=== PATIENT | female | born 1975 | race Caucasian/White ===

== ENCOUNTER → 2016-12-27 | Day surgery (SDC) | payer OTHER | END | disposition home or self-care (01) | LOC: JRADIR 09:07 | PROVIDERS: ATTEND Obstetrics & Gynecology | PROC: BU12YZZ Fluoroscopy of Bilateral Fallopian Tubes using Other Contrast (ICD-10-PCS; principal; 2016-12-27) | DX: N97.9 Female infertility, unspecified (principal) | CPT/HCPCS: 36415; 58340; 74740-TC; 76000-TC; 84702; Q9967 ==

== ENCOUNTER 2018-01-27 10:42 | Emergency (ER) | payer OTHER ==
[2018-01-27 10:58] VITALS: BP 124/77; PULSE 67; TEMP 98.1; BMI 25.7
[2018-01-27] MEDS ORDERED: DIPHTH,PERTUSS(ACELL),TET 0.5 ML DISP.SYRIN IM ONE (11:40)
--- NOTE | 2018-01-27 11:45 | PDOC ---
History of Present Illness - General Chief Complaint: Injury Stated Complaint: HAND INJURY - History of Present Illness Initial Comments: 42-year-old female without any comorbidities presents for evaluation of left fourth and fifth finger pain. She states she was moving a couch and the couch fell on her hand the edge of the leg of the couch lacerated her 5th finger. She has localized pain to the area without any other symptoms. 01/27/18 11:39 01/27/18 11:45 Past History - Past Medical History Allergies/Adverse Reactions: Allergies Allergy/AdvReac Type Severity Reaction Status Date / Time No Known Allergies Allergy Verified 01/27/18 10:54 Home Medications: Ambulatory Orders NK [No Known Home Medication] 01/27/18 Asthma: Yes COPD: No Other medical history: DENIES. - Suicide/Smoking/Psychosocial Hx Smoking History: Never smoked Review of Systems - Review of Systems Musculoskeletal: Yes: See HPI All Other Systems: Reviewed and Negative *Physical Exam - Vital Signs Last Vital Signs Temp Pulse Resp BP Pulse Ox 98.1 F 67 19 124/77 98 01/27/18 10:54 01/27/18 10:54 01/27/18 10:54 01/27/18 10:54 01/27/18 10:54 - Physical Exam Comments: There is mild swelling about the fifth finger of the left hand. There is a small subcentimeter wound longitudinal nature extending from the skin overlying the distal phalanx to the DIPJ on the volar aspect of the left fifth finger overlying the DIPJ, there is a small amount of subcutaneous fat exposed. I am unable to assess FDP and FDS. There is no swelling in the fourth finger FDS and FDP work independently there is tenderness over the DIPJ and PIPJ there are no gross sensory deficits. 01/27/18 11:40 01/27/18 11:48 ED Treatment Course - RADIOLOGY Radiology Studies Ordered: Category Date Time Status HAND- LEFT [RAD] Stat Radiology 01/27/18 11:39 Ordered Medical Decision Making - Medical Decision Making Is a samy fracture at the left fifth distal phalanx. The laceration on the volar aspect of the finger does not communicate with the fracture. I'll do a primary closure and washout of the laceration. Tetanus was updated. 01/27/18 12:11 01/27/18 12:37 A digital block was done aseptically on the left fifth finger. The wound was explored to its base in a bloodless field there is no foreign body identified. 3 simple interrupted 4-0 nylon sutures were placed this was tolerated well a dry sterile dressing was placed. The fingers were sebastián taped. *DC/Admit/Observation/Transfer Diagnosis at time of Disposition: Closed fracture of tuft of distal phalanx of finger, Crush fracture, Crush injury to finger, Sprain, finger - Discharge Dispostion Disposition: HOME Condition at time of disposition: Stable Decision to Admit order: No - Referrals Referrals: Claudia Mcgarry NP [Primary Care Provider] - Steven Tariq MD [Staff Physician] - - Patient Instructions Printed Discharge Instructions: DI for Crush Injury, Finger Sprain, DI for Laceration Repair, Laceration Repair, DI for Laceration Repair -- Finger Additional Instructions: Por favor regrese a la pravin de emergencias si ruvalcaba herida cabrera aumentado el dolor o el drenaje. No estoy seguro de si el tendn y el dedo meique se morse roto. Debe realizar un seguimiento con ciruga de la mano para obtener ms opciones de evaluacin y tratamiento. Las suturas que se colocaron hoy deben retirarse en 10 fox. l no requiere antibiticos para esto. Mantenga los dedos enganchados para ruvalcaba comodidad. Hay jose armando fractura en la punta del miguel dedo. La fractura no requiere ningn tratamiento. l puede quitarse el vendaje que se aplic hoy en 48 horas y lavarse el dedo con agua y jabn. l puede dejarlo abierto al aire. No coloque ninguna cinta sobre la herida. No aplique apsitos o bacitracin en la herida. Seguimiento con ciruga de mano en 1-2 fox para mayor evaluacin y opciones de tratamiento. Print Language: BURMESE - Post Discharge Activity
== END 2018-01-27 12:47 | disposition home or self-care (01) ==
LOC: JERFT 10:42
PROC: 0JQK0ZZ Repair Left Hand Subcutaneous Tissue and Fascia, Open Approach (ICD-10-PCS; principal; 2018-01-27)
PROC: 3E0234Z Introduction of Serum, Toxoid and Vaccine into Muscle, Percutaneous Approach (ICD-10-PCS; 2018-01-27)
DX: S67.197A Crushing injury of left little finger, initial encounter (principal); S62.667A Nondisplaced fracture of distal phalanx of left little finger, initial encounter for closed fracture; W23.0XXA Caught, crushed, jammed, or pinched between moving objects, initial encounter; Y93.89 Activity, other specified; Y92.038 Other place in apartment as the place of occurrence of the external cause; Y99.8 Other external cause status; S61.217A Laceration without foreign body of left little finger without damage to nail, initial encounter
CPT/HCPCS: 12011; 73130-TC-LR-FY; 90471; 90715; 99281-25

== ENCOUNTER 2018-02-05 11:07 | Emergency (ER) | payer OTHER ==
[2018-02-05 11:12] VITALS: BP 127/79; PULSE 73; TEMP 98.6; BMI 27.1
--- NOTE | 2018-02-05 11:32 | PDOC ---
History of Present Illness - General Chief Complaint: Suture/Staple Removal(Here) Stated Complaint: SUTURE REMOVAL Time Seen by Provider: 02/05/18 11:21 - History of Present Illness Initial Comments: 32-year-old female presents for suture removal left fifth finger sutures were placed 10 days ago she has occasions 02/05/18 11:30 Past History - Past Medical History Allergies/Adverse Reactions: Allergies Allergy/AdvReac Type Severity Reaction Status Date / Time No Known Allergies Allergy Verified 02/05/18 11:09 Home Medications: Ambulatory Orders NK [No Known Home Medication] 01/27/18 Asthma: Yes COPD: No DVT: No - Suicide/Smoking/Psychosocial Hx Smoking History: Never smoked Information on smoking cessation initiated: No Hx Alcohol Use: No Drug/Substance Use Hx: No Review of Systems - Review of Systems All Other Systems: Reviewed and Negative *Physical Exam - Vital Signs Last Vital Signs Temp Pulse Resp BP Pulse Ox 98.6 F 73 18 127/79 100 02/05/18 11:09 02/05/18 11:09 02/05/18 11:09 02/05/18 11:09 02/05/18 11:09 - Physical Exam Comments: Left fifth finger skin color and temperature are normal the wound edges are well approximated with eschar sensory intact. 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 02/05/18 11:30 Medical Decision Making - Medical Decision Making She still needs to follow-up with hand surgery for wound management and fracture management. 02/05/18 11:31 *DC/Admit/Observation/Transfer Diagnosis at time of Disposition: Visit for suture removal - Discharge Dispostion Disposition: HOME Condition at time of disposition: Stable Decision to Admit order: No - Referrals Referrals: Steven Tariq MD [Staff Physician] - - Patient Instructions Printed Discharge Instructions: DI for Suture Removal Additional Instructions: Please follow-up with hand surgery for further evaluation and treatment options. You need fracture management. Return to the emergency room should you experience any drainage swelling or increasing pain. He may take Tylenol Motrin for pain. - Post Discharge Activity
== END 2018-02-05 11:37 | disposition home or self-care (01) ==
LOC: JERFT 11:07
DX: Z48.817 Encounter for surgical aftercare following surgery on the skin and subcutaneous tissue (principal); Z48.02 Encounter for removal of sutures
CPT/HCPCS: 99281-25

== ENCOUNTER 2018-05-24 11:50 | Emergency (ER) | payer OTHER ==
[2018-05-24 11:58] VITALS: BP 124/71; PULSE 96; TEMP 98.6; BMI 26.6
--- NOTE | 2018-05-24 12:13 | PDOC ---
History of Present Illness - General Chief Complaint: Cold Symptoms Stated Complaint: COLD SYMPTOMS Time Seen by Provider: 05/24/18 12:01 History Source: Patient Exam Limitations: No Limitations - History of Present Illness Initial Comments: 05/24/18 12:54 Patient is a 42-year-old female with no past medical history who presents to emergency department today for 2 weeks of cough. Patient states that her cough is productive and she brings up yellow/greenish mucus. She states that she is unable to sleep due to the coughing. Patient state her throat also hurts from the coughing. She admits to chest and back pain while coughing. Denies fevers, chills, earache, shortness of breath, nausea, vomiting and diarrhea. Past History - Travel Traveled outside of the country in the last 30 days: No Close contact w/someone who was outside of country & ill: No - Past Medical History Allergies/Adverse Reactions: Allergies Allergy/AdvReac Type Severity Reaction Status Date / Time No Known Allergies Allergy Verified 05/24/18 11:56 Home Medications: Ambulatory Orders Acetaminophen [Tylenol] 650 mg PO QID PRN 05/24/18 Albuterol 0.083% Nebulizer Micheline [Ventolin 0.083% Nebulizer Soln -] 1 neb NEB Q4H #20 vial 05/24/18 Budesonide/Formeterol Fumarate [SYMBICORT 80/4.5mcg -] 1 inh PO DAILY #1 cannister 05/24/18 Guaifenesin AC [Robitussin AC] 10 ml PO Q6H #200 ml MDD 4 05/24/18 Ibuprofen 400 mg PO QID PRN 05/24/18 predniSONE [Deltasone -] 40 mg PO DAILY #8 tablet 05/24/18 Asthma: Yes COPD: No DVT: No - Suicide/Smoking/Psychosocial Hx Smoking History: Never smoked Hx Alcohol Use: No Drug/Substance Use Hx: No Review of Systems - Review of Systems Able to Perform ROS?: Yes Comments:: 05/24/18 12:11 CONSTITUTIONAL: Absent: fever, chills, diaphoresis, generalized weakness, malaise, loss of appetite HEENT: Absent: rhinorrhea, nasal congestion, throat pain, throat swelling, difficulty swallowing, mouth swelling, ear pain, eye pain, visual Changes CARDIOVASCULAR: Absent: chest pain, loss of consciousness, palpitations, irregular heart rate, peripheral edema RESPIRATORY: Present: cough Absent: cough, shortness of breath, dyspnea with exertion, orthopnea, wheezing, stridor, hemoptysis GASTROINTESTINAL: Absent: abdominal pain, abdominal distension, nausea, vomiting, diarrhea, constipation, melena, hematochezia GENITOURINARY: Absent: dysuria, frequency, urgency, hesitancy, hematuria, flank pain, genital pain MUSCULOSKELETAL: Absent: myalgia, arthralgia, joint swelling SKIN: Absent: rash, itching, pallor HEMATOLOGIC/IMMUNOLOGIC: Absent: easy bleeding, easy bruising, lymphadenopathy, frequent infections ENDOCRINE: Absent: unexplained weight gain, unexplained weight loss, heat intolerance, cold intolerance NEUROLOGIC: Absent: headache, focal weakness or paresthesias, dizziness, unsteady gait, seizure, mental status changes, bladder or bowel incontinence PSYCHIATRIC: Absent: anxiety, depression, suicidal or homicidal ideation, hallucinations. Is the patient limited Montenegrin proficient: No *Physical Exam - Vital Signs Last Vital Signs Temp Pulse Resp BP Pulse Ox 98.6 F 96 H 18 124/71 100 05/24/18 11:57 05/24/18 11:57 05/24/18 11:57 05/24/18 11:57 05/24/18 11:57 - Physical Exam Comments: 05/24/18 12:13 GENERAL: Well developed, well nourished. Awake and alert. No acute distress. HEENT: Normocephalic, atraumatic. PERRLA, EOMI. No conjunctival pallor. Sclera are non- icteric. Moist mucous membranes. Oropharynx is clear. NECK: Supple. Full ROM. No JVD. Carotid pulses 2+ and symmetric, without bruits. No thyromegaly. No lymphadenopathy. CARDIOVASCULAR: Regular rate and rhythm. No murmurs, rubs, or gallops. Distal pulses are 2+ and symmetric. PULMONARY: Dry cough on exam. No evidence of respiratory distress. Lungs clear to auscultation bilaterally. No wheezing, rales or rhonchi. SKIN: Warm and dry. Normal capillary refill. No rashes. No jaundice. NEUROLOGICAL: Alert, awake, appropriate. Cranial nerves 2-12 intact. No deficits to light touch and temperature in face, upper extremities and lower extremities. No motor deficits in the in face, upper extremities and lower extremities. Normoreflexic in the upper and lower extremities. Normal speech. Toes are down- going bilaterally. Gait is normal without ataxia. Medical Decision Making - Medical Decision Making 05/24/18 15:16 Patient is a 42-year-old female who presents emergency Department with 2 weeks of cough and cold-like symptoms. -On exam patient with alternating dry and productive cough. -Lungs clear to auscultation bilaterally. Heart: Regular rate and rhythm. -Chest x-ray is negative for pneumonia. -Most likely a bronchitis at this time given consistent cough. -Patient feels better after DuoNeb, steroids, cough syrup. -We'll discharge home with PCP follow-up. Outpatient medication sent. -I discussed the physical exam findings, ancillary test results and final diagnoses with the patient. I answered all of the patient's questions. The patient was satisfied with the care received and felt comfortable with the discharge plan and treatment plan. The Patient agrees to follow up with the primary care physician/specialist within 24-72 hours. Return precautions were given. *DC/Admit/Observation/Transfer Diagnosis at time of Disposition: Bronchitis - Discharge Dispostion Disposition: HOME Condition at time of disposition: Stable Decision to Admit order: No - Prescriptions Prescriptions: Albuterol 0.083% Nebulizer Micheline [Ventolin 0.083% Nebulizer Soln -] 1 neb NEB Q4H #20 vial Budesonide/Formeterol Fumarate [SYMBICORT 80/4.5mcg -] 1 inh PO DAILY #1 cannister Guaifenesin AC [Robitussin AC] 10 ml PO Q6H #200 ml MDD 4 predniSONE [Deltasone -] 40 mg PO DAILY #8 tablet - Referrals Referrals: America Maddox MD [Primary Care Provider] - - Patient Instructions Printed Discharge Instructions: DI for Acute Bronchitis Additional Instructions: You have bronchitis. Your x-ray was negative today for pneumonia. Please take the albuterol inhaler every 4 hours Take the steroid pack as directed. Take the cough syrup every 6 hours as needed for cough. Do not drive after taking this medication as it may make you sleepy. Follow-up with her primary care doctor this week. Return to the emergency department for fevers, chills, worsening pain, or if you have any changes in your symptoms. Tienes bronquitis. Ruvalcaba radiografa fue negativa hoy para neumona. Por favor tome el inhalador de albuterol cada 4 horas. Empire el paquete de esteroides iram se indica. Empire el jarabe para la tos cada 6 horas segn sea necesario para la tos. No maneje despus de fernando ela medicamento, ya que puede causarle sueo. Seguimiento con ruvalcaba mdico de atencin primaria esta semana. Regrese al departamento de emergencias para la fiebre, escalofros, dolor que empeora o si tiene algn cambio en cecil sntomas. - Post Discharge Activity Forms/Work/School Notes: Back to Work
[2018-05-24] MEDS ORDERED: DEXAMETHASONE SOD PHOSPHATE 10 MG/1 ML VIAL ONE (12:21)
[2018-05-24] MEDS ORDERED: guaiFENesin/D-METHORPHAN HB 10 ML UNIT-DOSE CUPS ONE (12:22)
[2018-05-24] MEDS ORDERED: DEXAMETHASONE LIQUID 0.5 MG/5 ML 240 ML BULK BOTTLE PO ONE (12:22)
[2018-05-24] MEDS ORDERED: ALBUTEROL SO4 2.5/IPRATROPIUM 0.5 INH SOL 3 ML VIAL.NEB. NEB ONE ×3 (12:22→13:01)
[2018-05-24] MEDS ORDERED: guaiFENesin/D-METHORPHAN HB 10 ML UNIT-DOSE CUPS PO ONE (12:23)
== END 2018-05-24 14:02 | disposition home or self-care (01) ==
LOC: JERFT 11:50
PROC: 3E0F7GC Introduction of Other Therapeutic Substance into Respiratory Tract, Via Natural or Artificial Opening (ICD-10-PCS; principal; 2018-05-24)
PROC: 3E0F7GC Introduction of Other Therapeutic Substance into Respiratory Tract, Via Natural or Artificial Opening (ICD-10-PCS; 2018-05-24)
DX: J40 Bronchitis, not specified as acute or chronic (principal)
CPT/HCPCS: 71046-TC-FY; 94640; 99281-25

== ENCOUNTER 2018-07-31 09:21 | Emergency (ER) | payer OTHER ==
[2018-07-31 09:37] VITALS: BP 128/66; PULSE 88; TEMP 98.7; BMI 28.3
--- NOTE | 2018-07-31 10:41 | PDOC ---
History of Present Illness - General Chief Complaint: Cold Symptoms Stated Complaint: FLU LIKE SYMPTOMS Time Seen by Provider: 07/31/18 09:50 History Source: Patient Exam Limitations: No Limitations - History of Present Illness Initial Comments: 07/31/18 10:37 Patient is here with complaints of generalized body aches, fevers, cough and malaise. Was treated for bronchitis 6 weeks ago which resolved but states approximately 2 weeks ago had recurrence of symptoms and is continued to feel sore throat pain, earache and congestion. States has had intermittent fevers but does not take temperature. His used [id number] medications with minimal resolved. Timing/Duration: reports: changing over time, getting worse, intermittent Severity: reports: mild Associated Symptoms: reports: cough, earache, fever/chills, nasal congestion, wheezing Past History - Travel Traveled outside of the country in the last 30 days: No Close contact w/someone who was outside of country & ill: No - Past Medical History Allergies/Adverse Reactions: Allergies Allergy/AdvReac Type Severity Reaction Status Date / Time No Known Allergies Allergy Verified 05/24/18 11:56 Home Medications: Ambulatory Orders Acetaminophen [Tylenol] 650 mg PO QID PRN 05/24/18 Albuterol 0.083% Nebulizer Micheline [Ventolin 0.083% Nebulizer Soln -] 1 neb NEB Q4H #20 vial 05/24/18 Budesonide/Formeterol Fumarate [SYMBICORT 80/4.5mcg -] 1 inh PO DAILY #1 cannister 05/24/18 Guaifenesin AC [Robitussin AC] 10 ml PO Q6H #200 ml MDD 4 05/24/18 Ibuprofen 400 mg PO QID PRN 05/24/18 predniSONE [Deltasone -] 40 mg PO DAILY #8 tablet 05/24/18 Asthma: Yes COPD: No DVT: No - Immunization History Immunization Up to Date: Yes - Suicide/Smoking/Psychosocial Hx Smoking History: Never smoked Hx Alcohol Use: No Drug/Substance Use Hx: No Review of Systems - Review of Systems Able to Perform ROS?: Yes Is the patient limited Chinese proficient: Yes Constitutional: Yes: Symptoms Reported, See HPI, Chills, Fever, Malaise HEENTM: Yes: Symptoms Reported, See HPI, Nose Congestion Respiratory: Yes: Symptoms reported, See HPI, Cough. No: Wheezing ABD/GI: Yes: See HPI. No: Symptoms Reported Musculoskeletal: Yes: Symptoms Reported Integumentary: Yes: Symptoms Reported, See HPI Neurological: No: Symptoms reported All Other Systems: Reviewed and Negative *Physical Exam - Vital Signs Last Vital Signs Temp Pulse Resp BP Pulse Ox 98.7 F 88 16 128/66 98 07/31/18 09:30 07/31/18 09:30 07/31/18 09:30 07/31/18 09:30 07/31/18 09:30 - Physical Exam General Appearance: Yes: Nourished, Appropriately Dressed, Apparent Distress, Mild Distress HEENT: positive: CELESTINA, Normal ENT Inspection, TMs Normal, Rhinorrhea Neck: positive: Supple. negative: Lymphadenopathy (R), Lymphadenopathy (L) Respiratory/Chest: positive: Lungs Clear, Normal Breath Sounds Gastrointestinal/Abdominal: positive: Normal Bowel Sounds ("), Soft. negative: Tender Musculoskeletal: positive: Normal Inspection Extremity: positive: Normal Capillary Refill, Normal Inspection Integumentary: positive: Normal Color, Dry, Warm Neurologic: positive: automatic stacker II-XII NML intact, Fully Oriented, Alert, Normal Mood/ Affect Moderate Sedation - Procedure Monitoring Vital Signs: Procedure Monitoring Vital Signs Temperature 98.7 F 07/31/18 09:30 Pulse Rate 88 07/31/18 09:30 Respiratory Rate 16 07/31/18 09:30 Blood Pressure 128/66 07/31/18 09:30 O2 Sat by Pulse Oximetry (%) 98 07/31/18 09:30 Progress Note - Progress Note Progress Note: Upper respiratory infection. Influenza testing and strep testing negative. We' ll treat for viral illness conservative *DC/Admit/Observation/Transfer Diagnosis at time of Disposition: Upper respiratory infection, viral - Discharge Dispostion Disposition: HOME Condition at time of disposition: Stable Decision to Admit order: No - Referrals Referrals: America Maddox MD [Primary Care Provider] - - Patient Instructions Printed Discharge Instructions: DI for Viral Upper Respiratory Infection -- Adult Additional Instructions: Rest, drink lots of fluids: Teas, water, soups, Pedialyte Saltwater gargles Steamy showers/seem to face break up mucus Avoid contact with others until fevers and cough resolved Lots of handwashing and good hygiene Continue [id number]-uky-[id number] medications for symptomatic relief Tylenol or Motrin for fever and pain Followup with private physician in one to 2 days as needed Return to emergency department for worsened symptoms, fevers, dehydration - Post Discharge Activity Forms/Work/School Notes: Back to Work
== END 2018-07-31 10:46 | disposition home or self-care (01) ==
LOC: JERFT 09:21
DX: J06.9 Acute upper respiratory infection, unspecified (principal); B97.89 Other viral agents as the cause of diseases classified elsewhere
CPT/HCPCS: 87070; 87804; 87880; 99281-25

== ENCOUNTER 2019-04-26 09:35 | Emergency (ER) | payer OTHER ==
[2019-04-26 09:45] VITALS: BP 106/64; PULSE 97; TEMP 98.1; BMI 28.3
--- NOTE | 2019-04-26 09:57 | PDOC ---
History of Present Illness - General Chief Complaint: Pain Stated Complaint: RT ELBOW PAIN History Source: Patient Exam Limitations: No Limitations - History of Present Illness Initial Comments: 04/26/19 09:53 Pt said she developed right elbow pain unknown if due to a trauma but does carry a baby in that arm 04/26/19 09:54 Is this a multiple visit Asthma Patient?: No Timing/Duration: 1 week Severity: moderate Modifying Factors: improves with: cold therapy, medication (advil) Past History - Travel Traveled outside of the country in the last 30 days: No Close contact w/someone who was outside of country & ill: No - Past Medical History Allergies/Adverse Reactions: Allergies Allergy/AdvReac Type Severity Reaction Status Date / Time No Known Allergies Allergy Verified 04/26/19 09:39 Home Medications: Ambulatory Orders NK [No Known Home Medication] 04/26/19 Asthma: Yes COPD: No DVT: No - Immunization History Immunization Up to Date: Yes - Psycho Social/Smoking Cessation Hx Smoking History: Never smoked Hx Alcohol Use: No Drug/Substance Use Hx: No Review of Systems - Review of Systems Able to Perform ROS?: Yes Is the patient limited Iraqi proficient: Yes Constitutional: No: Symptoms Reported HEENTM: No: Symptoms Reported Respiratory: No: Symptoms reported Cardiac (ROS): No: Symptoms Reported ABD/GI: No: Symptoms Reported : No: Symptoms Reported Musculoskeletal: Yes: Joint Pain (right arm elbow). No: Back Pain, Joint Swelling, Muscle Pain, Muscle Weakness, Neck Pain, Joint Stiffness *Physical Exam - Vital Signs Last Vital Signs Temp Pulse Resp BP Pulse Ox 98.1 F 97 H 18 106/64 99 04/26/19 09:37 04/26/19 09:37 04/26/19 09:37 04/26/19 09:37 04/26/19 09:37 - Physical Exam General Appearance: Yes: Appropriately Dressed Cardiovascular: positive: Regular Rate Gastrointestinal/Abdominal: positive: Flat, Soft Musculoskeletal: positive: Normal Inspection, Other (no pain to the right shoulder, wrist but has pain flexing elbow. No erythema, no joint swelling, ) Extremity: positive: Normal Inspection, Tender (right elbow). negative: Normal Range of Motion, Coldness, Delayed Capillary Refill Integumentary: positive: Dry Neurologic: positive: Fully Oriented ED Treatment Course - Medications Given in the ED: 04/26/19 10:07 tylenol Medical Decision Making - Medical Decision Making 04/26/19 09:56 Pt seen and examined. Pt with right elbow pain with holding a child at home. Pt has tried motrin but still with pain to the flexion of elbow Xray neg for fracture Will treat as tendonitis ice, motrin, avoid lifting 04/26/19 10:07 xray neg Discharge - Discharge Information Problems reviewed: Yes Clinical Impression/Diagnosis: Elbow tendonitis Condition: Fair Disposition: HOME - Admission No - Follow up/Referral Referrals: Ivy Sawant MD [Primary Care Provider] - - Patient Discharge Instructions Patient Printed Discharge Instructions: DI for Tendinitis Additional Instructions: Discharge -Ice to the area -avoid lifting and holding objects -use motrin for pain - Post Discharge Activity Work/Back to School Note: Back to Work
[2019-04-26] MEDS ORDERED: ACETAMINOPHEN 500 MG TABLET (FP) PO ONE (10:00)
[2019-04-26] MEDS ORDERED: ACETAMINOPHEN 325 MG TABLET (FP) ONE (10:03)
== END 2019-04-26 10:10 | disposition home or self-care (01) ==
LOC: JERFT 09:35
DX: M77.8 Other enthesopathies, not elsewhere classified (principal); X50.0XXA Overexertion from strenuous movement or load, initial encounter; Y93.89 Activity, other specified; Y92.89 Other specified places as the place of occurrence of the external cause; Y99.8 Other external cause status; Z87.09 Personal history of other diseases of the respiratory system
CPT/HCPCS: 73070-TC-RT-FY; 99282-25